=== PATIENT | male | born 1980 | race Caucasian/White ===

== ENCOUNTER 2018-12-10 02:59 | Emergency (ER) | payer BC ==
[~2018-12-10] VITALS: Ht 177.8 cm; Wt 81.7 kg
[~2018-12-10 02:59] MED LIST: CIPROFLOXACIN500 M1 PO; IBUPROFEN 600600 M1 PO; NOHOMEMEDICATIONS; NORCO 5-325 TA1 EACH PO; VICODIN 5-5001 EACH PO
[2018-12-10 04:06] LABS: HEMATOCRIT 47.9 % (42.0-52.0); HEMOGLOBIN 16.2 gm/dL (14.0-18.0); MCH 29.9 pg (26.0-34.0); MCHC 33.9 g/dL (28.0-37.0); MCV 88.4 fL (80.0-100.0); RBC 5.42 mil/uL (4.50-6.00); RDW 13.7 % (10.5-14.5); WBC 8.5 thou/uL (4.0-11.0)
[2018-12-10 04:22] LABS: ANION GAP 12 mmol/L (7-16); BUN 11 mg/dL (7-18); CALCIUM 8.8 mg/dL (8.5-10.1); CHLORIDE 103 mmol/L (98-107); CO2 23 mmol/L (21-32); CREATININE 0.8 mg/dL (0.7-1.3); GLUCOSE 95 mg/dL (74-106); SODIUM 138 mmol/L (136-145)
[2018-12-10 04:27] LABS: ALBUMIN 4.1 g/dL (3.4-5.0); DIRECT BILIRUBIN < 0.1 mg/dL (<0.1-0.3); LIPASE 115 U/L (73-393); SGOT 16 U/L (15-37); SGPT 48 U/L (30-65); TOTAL BILIRUBIN 0.3 mg/dL (<0.1-1.0); TOTAL PROTEIN 7.5 g/dL (6.4-8.2)
[2018-12-10 05:20] VITALS: BP 126/71
== END 2018-12-10 05:20 | disposition home or self-care (01) ==
LOC: ER 02:59
PROVIDERS: Emergency Medicine
DX: R10.31 Right lower quadrant pain (principal); H92.03 Otalgia, bilateral; K59.00 Constipation, unspecified; R07.0 Pain in throat; F17.210 Nicotine dependence, cigarettes, uncomplicated